=== PATIENT | male | born 1995 | race African-American/Black ===

== ENCOUNTER 2019-09-27 19:06 | Emergency (ER) | payer SELFPAY ==
[~2019-09-27] VITALS: Ht 177.8 cm; Wt 114.0 kg
[2019-09-27] MEDS ORDERED: TETANUS, DIPHTHERIA, PERTUSSIS VAC/PF 0.5ML (>7YR OLD) IM ONE (19:30)
[2019-09-27] MEDS ORDERED: ACETAMINOPHEN WITH CODEINE 300/30MG TABLET PO ONE (19:30)
[2019-09-27] MEDS ORDERED: CEPHALEXIN 250MG CAPSULE PO ONE (19:30)
[2019-09-27 21:15] VITALS: BP 121/74
== END 2019-09-27 21:15 | disposition home or self-care (01) ==
LOC: ER 19:06
DX: S51.832A Puncture wound without foreign body of left forearm, initial encounter (principal); W33.01XA Accidental discharge of shotgun, initial encounter; Y93.89 Activity, other specified; Y92.89 Other specified places as the place of occurrence of the external cause; Y99.8 Other external cause status
CPT/HCPCS: 73090; 90471; 90715; 99283

== ENCOUNTER 2019-09-29 09:00 | Emergency (ER) | payer SELFPAY ==
[~2019-09-29] VITALS: Ht 190.5 cm; Wt 116.0 kg
[2019-09-29 09:11] VITALS: BP 148/86
== END 2019-09-29 09:54 | disposition home or self-care (01) ==
LOC: ER 09:00
DX: S51.802D Unspecified open wound of left forearm, subsequent encounter (principal); Z98.890 Other specified postprocedural states; X58.XXXD Exposure to other specified factors, subsequent encounter
CPT/HCPCS: 99281